=== PATIENT | female | born 1990 | race Caucasian/White ===

== ENCOUNTER → 2019-07-21 | Outpatient (CLI) | payer BC ==
--- NOTE | 2019-07-21 17:10 | RAD ---
THYROID ULTRASOUND History: Cervical lymphadenopathy. Fever of unknown origin. Comparison: None. Technique: Multiple grayscale and color Doppler images of the thyroid gland were obtained. Findings: Right thyroid lobe measures 2.96 x 1.4 x 1.8 cm. Left thyroid lobe measures 3.6 x 1.4 x 1.7 cm. Isthmus measures 0.2 cm. Bilateral colloid cysts two on the right and one on the left. The largest on the right measures 0.7 x 0.7 x 0.6 cm. Borderline enlarged rounded hypoechoic left deep cervical chain lymph nodes largest measures 2.6 x 0.8 x 0.7 cm. IMPRESSION: 1. Borderline enlarged rounded hypoechoic left deep cervical chain lymph nodes, likely reactive. Recommend continued clinical follow-up and ultrasound follow-up if interval growth 2. Bilateral thyroid colloid cysts. Electronically signed by: Madhu Moreno DO (07/21/2019 5:07 PM) [facility]
== END | disposition home or self-care (01) ==
LOC: US 10:01
PROVIDERS: ATTEND Family Medicine
DX: E04.1 Nontoxic single thyroid nodule (principal); R59.0 Localized enlarged lymph nodes
CPT/HCPCS: 76536

== ENCOUNTER 2020-09-24 11:05 | Emergency (ER) | payer BC ==
[~2020-09-24] VITALS: Ht 152.4 cm; Wt 50.0 kg
[2020-09-24] MEDS: IV NORMAL SALINE 1,000ML 1,000 ML IV ONE (11:29)
[2020-09-24 11:39] LABS: HEMOGLOBIN 12.9 g/dL (12.0-15.5); RED BLOOD COUNT 4.26 x10^6/uL (3.50-5.40); RED CELL DISTRIBUTION WIDTH 13.1 % (11.5-14.5); WHITE BLOOD COUNT 3.4 x10^3/uL (4.0-11.0)
[2020-09-24 11:46] LABS: CALCIUM 8.7 mg/dL (8.5-10.1); CREATININE 0.8 mg/dL (0.6-1.0); GFR 84.2; POTASSIUM 3.2 mmol/L (3.5-5.1)
[2020-09-24 11:59] LABS: PREG TEST PT QUAL NEGATIVE (NEG)
[2020-09-24] MEDS: POTASSIUM CHLORIDE 10 MEQ TABLET.ER. PO ONE (12:15)
[2020-09-24 12:25] VITALS: BP 127/47
[2020-09-24 12:43] LABS: BILIRUBIN,URINE NEG (NEG); CLARITY,URINE HAZY; COLOR,URINE YELLOW; GLUCOSE,URINE NEG (NEG); NITRITE,URINE NEG (NEG); RBC,URINE 0 /HPF (0-2); UROBILINOGEN,URINE 0.2 mg/dL (0.2 mg/dL)
[2020-09-24 12:44] LABS: BACTERIA,URINE FEW /HPF (0-FEW); SQUAMOUS EPITHELIAL CELL,UR MOD /LPF
--- NOTE | 2020-09-24 12:49 | PHYS DOC ---
Past History Past Medical History: No Pertinent History Past Surgical History: No Surgical History Alcohol Use: None General Adult EDM: Chief Complaint: MULTIPLE COMPLAINTS HPI: HPI: Patient is a 30-year-old female who presented to ER for evaluation feeling hot flushes, episode of dizziness, palpitation. Patient denied any chest pain, no headache, no cough or fever. Patient checked her blood pressure at home with a portable machine, and it shown that her blood pressure high. So she came here for evaluation. Patient denies any history of hypertension, she is not on any medication. Patient denies any chest pain or any trouble breathing. Denies any recent travel or operation, denies being exposed to anybody who tested positive for COVID-19. Patient said when she got here she does not have any symptom. Review of Systems: Review of Systems: Constitutional: Denies fever or chills Eyes: Denies change in visual acuity HENT: Denies nasal congestion or sore throat Respiratory: Denies cough or shortness of breath Cardiovascular: Denies chest pain or edema GI: Denies abdominal pain, nausea, vomiting, bloody stools or diarrhea : Denies dysuria Musculoskeletal: Denies back pain or joint pain Integument: Denies rash Neurologic: Denies headache, focal weakness or sensory changes Endocrine: Denies polyuria or polydipsia Lymphatic: Denies swollen glands Psychiatric: Denies depression or anxiety Current Medications: Current Meds: Current Medications Medications (Trade) Dose Ordered Sig/Candace Start Time Stop Time Status Last Admin Dose Admin Potassium Chloride (Klor-Con) 40 meq 1X ONCE 09/24/20 12:15 09/24/20 12:16 DC 09/24/20 12:15 40 MEQ Sodium Chloride 1,000 ml @ 1,000 mls/hr 1X ONCE 09/24/20 11:30 09/24/20 12:29 DC 09/24/20 11:29 1,000 MLS/HR Allergies: Allergies: Allergies Coded Allergies Type Severity Reaction Last Updated Verified latex Allergy Unknown 09/24/20 Yes Physical Exam: PE: Constitutional: Well developed, well nourished, no acute distress, non-toxic appearance. [] HENT: Normocephalic, atraumatic, bilateral external ears normal, oropharynx moist, no oral exudates, nose normal. [] Eyes: PERRLA, EOMI, conjunctiva normal, no discharge. [] Neck: Normal range of motion, no tenderness, supple, no stridor. [] Cardiovascular:Heart rate regular rhythm, no murmur [] Lungs & Thorax: Bilateral breath sounds clear to auscultation [] Abdomen: Bowel sounds normal, soft, no tenderness, no masses, no pulsatile masses. [] Skin: Warm, dry, no erythema, no rash. [] Back: No tenderness, no CVA tenderness. [] Extremities: No tenderness, no cyanosis, no clubbing, ROM intact, no edema. [] Neurologic: Alert and oriented X 3, normal motor function, normal sensory function, no focal deficits noted. [] Psychologic: Affect normal, judgement normal, mood normal. [] Current Patient Data: Labs: Laboratory Tests Test 09/24/20 11:26 09/24/20 12:19 White Blood Count 3.4 x10^3/uL (4.0-11.0) L Red Blood Count 4.26 x10^6/uL (3.50-5.40) Hemoglobin 12.9 g/dL (12.0-15.5) Hematocrit 38.0 % (36.0-47.0) Mean Corpuscular Volume 89 fL (79-100) Mean Corpuscular Hemoglobin 30 pg (25-35) Mean Corpuscular Hemoglobin Concent 34 g/dL (31-37) Red Cell Distribution Width 13.1 % (11.5-14.5) Platelet Count 177 x10^3/uL (140-400) Sodium Level 130 mmol/L (136-145) L Potassium Level 3.2 mmol/L (3.5-5.1) L Chloride Level 96 mmol/L (98-107) L Carbon Dioxide Level 24 mmol/L (21-32) Anion Gap 10 (6-14) Blood Urea Nitrogen 10 mg/dL (7-20) Creatinine 0.8 mg/dL (0.6-1.0) Estimated GFR (Cockcroft-Gault) 84.2 Glucose Level 114 mg/dL (70-99) H Calcium Level 8.7 mg/dL (8.5-10.1) Serum Test, Qualitative Negative (NEG) Urine Collection Type Unknown Urine Color Yellow Urine Clarity Hazy Urine pH 8.5 Urine Specific [place] 1.020 Urine Protein Neg (NEG-TRACE) Urine Glucose (UA) Neg mg/dL (NEG) Urine Ketones (Stick) Neg mg/dL (NEG) Urine Blood Neg (NEG) Urine Nitrite Neg (NEG) Urine Bilirubin Neg (NEG) Urine Urobilinogen Dipstick 0.2 mg/dL (0.2 mg/dL) Urine Leukocyte Esterase Mod (NEG) Urine RBC 0 /HPF (0-2) Urine WBC 5-10 /HPF (0-4) Urine Squamous Epithelial Cells Mod /LPF Urine Bacteria Few /HPF (0-FEW) Vital Signs: Vital Signs Date Time Temp Pulse Resp B/P (MAP) Pulse Ox O2 Delivery O2 Flow Rate FiO2 09/24/20 12:25 90 16 127/47 (73) 98 Room Air 09/24/20 11:14 97.6 EKG: EKG: [] Radiology/Procedures: Radiology/Procedures: [] Heart Score: Risk Factors: Risk Factors: DM, Current or recent (<one month) smoker, HTN, HLP, family history of CAD, obesity. Risk Scores: Score 0 - 3: 2.5% MACE over next 6 weeks - Discharge Home Score 4 - 6: 20.3% MACE over next 6 weeks - Admit for Clinical Observation Score 7 - 10: 72.7% MACE over next 6 weeks - Early Invasive Strategies Course & Med Decision Making: Course & Med Decision Making Pertinent Labs and Imaging studies reviewed. (See chart for details) Patient had no urinary symptoms, no burning with urination, no frequency or urgency. UA shown contamination, no antibiotic needed. Patient was found to have low potassium, patient was given potassium supplement in ER. Patient was discharged home, she was instructed follow-up with her family physician for reevaluation. Nik Disclaimer: Nik Disclaimer: This electronic medical record was generated, in whole or in part, using a voice recognition dictation system. Departure Departure: Impression: Primary Impression: Hypokalemia Disposition: 01 DC HOME SELF CARE/HOMELESS Condition: IMPROVED Referrals: PATRICIA REN MD (PCP) follow up with your doctor in 1-2 days for reevaluation Patient Instructions: Hypokalemia Additional Instructions: Thank you for visiting our Emergency Department. We appreciate you trusting us with your care. If any additional problems come up don't hesitate to return to visit us. Please follow up with your primary care provider so they can plan additional care if needed and know about the problem that you had. If symptoms worsen come back to the Emergency Department. Any concerning symptoms that start such as chest pain, shortness of air, weakness or numbness on one side of the body, running high fevers or any other concerning symptoms return to the ER. DELMI HAMPTON DO Sep 24, 2020 12:49
== END 2020-09-24 13:00 | disposition home or self-care (01) ==
LOC: ER 11:05
DX: E87.6 Hypokalemia (principal); Z91.040 Latex allergy status
CPT/HCPCS: 36415; 80048; 81001; 84703; 85027; 87086; 96360; 99283; J7030

== ENCOUNTER 2020-10-11 18:38 | Emergency (ER) | payer BC ==
[~2020-10-11] VITALS: Ht 152.4 cm; Wt 51.6 kg
[2020-10-11] MEDS ORDERED: IV NORMAL SALINE 1,000ML 1,000 ML IV ONE (19:30)
--- NOTE | 2020-10-11 19:31 | PHYS DOC ---
Past History Past Medical History: No Pertinent History (ES DIAS APRN) Past Surgical History: No Surgical History (ES DIAS APRN) Alcohol Use: None (ES DIAS APRN) Adult General Chief Complaint Chief Complaint: RAPID HEART RATE HPI HPI Patient is a 30-year-old female patient presenting to the ED today to be evaluated for tachycardia and a cough. Patient states 3 weeks ago she developed nasal congestion, she states it cleared up but she was stuck with a cough. She states today she went to urgent care to be evaluated and her heart rate was in the 140s. Patient states tachycardia is not unusual for her. She states she has had chronic tachycardia for a while and nobody knows why. She states she has been seen by her PCP and was advised to follow-up with a food photographer and be put a Holter monitor. She states that part has not been done yet. Patient denies any fever. Denies any chance she is . Denies being on any control. Denies any unilateral leg pain or recent hospitalizations or surgeries. (ES DIAS APRN) Review of Systems Review of Systems Constitutional: Denies fever or chills [] Eyes: Denies change in visual acuity, redness, or eye pain [] HENT: Denies nasal congestion or sore throat [] Respiratory: Reports cough, denies shortness of breath [] Cardiovascular: Reports tachycardia GI: Denies abdominal pain, nausea, vomiting, bloody stools or diarrhea [] : Denies dysuria or hematuria [] Musculoskeletal: Denies back pain or joint pain [] Integument: Denies rash or skin lesions [] Neurologic: Denies headache, focal weakness or sensory changes [] All other systems were reviewed and found to be within normal limits, except as documented in this note. (ES DIAS APRN) Allergies Allergies Allergies Coded Allergies Type Severity Reaction Last Updated Verified latex Allergy Unknown 10/11/20 Yes (ES DIAS APRN) Physical Exam Physical Exam Constitutional: Well developed, well nourished, no acute distress, non-toxic appearance. [] HENT: Normocephalic, atraumatic, bilateral external ears normal, oropharynx moist, no oral exudates, nose normal. [] Eyes: PERRLA, EOMI, conjunctiva normal, no discharge. [] Neck: Normal range of motion, no tenderness, supple, no stridor. [] Cardiovascular: Tachycardic, no murmur [] Lungs & Thorax: Bilateral breath sounds clear to auscultation [] Abdomen: Bowel sounds normal, soft, no tenderness, no masses, no pulsatile masses. [] Skin: Warm, dry, no erythema, no rash. [] Back: No tenderness, no CVA tenderness. [] Extremities: No tenderness, no cyanosis, no clubbing, ROM intact, no edema. [] Neurologic: Alert and oriented X 3, normal motor function, normal sensory function, no focal deficits noted. [] Psychologic: Affect normal, judgement normal, mood normal. [] (ES DIAS APRN) Current Patient Data Vital Signs Vital Signs Date Time Temp Pulse Resp B/P (MAP) Pulse Ox O2 Delivery O2 Flow Rate FiO2 10/11/20 18:48 97.6 114 26 122/69 (86) 100 Room Air (ES DIAS APRN) EKG EKG [address] Rodriguez sinus tachycardia HR 115 no STEMI[] (ES DIAS APRN) Radiology/Procedures Radiology/Procedures []PROCEDURE: PORTABLE CHEST 1V Exam: Chest one view INDICATION: Tachycardia TECHNIQUE: Frontal view of the chest Comparisons: None FINDINGS: The cardiomediastinal silhouette and pulmonary vessels are within normal limits. The lung and pleural spaces are clear. IMPRESSION: No acute cardiopulmonary process. Electronically signed by: Alexis Hensley MD (10/11/2020 8:11 PM) [facility] DICTATED AND SIGNED BY: ALEXIS HENSLEY MD DATE: 10/11/202010 CC: DESMOND BERNAL MD; PATRICIA REN MD; ES DIAS APRN ~MTH0 0 (ES DIAS APRN) Heart Score Risk Factors: Risk Factors: DM, Current or recent (<one month) smoker, HTN, HLP, family history of CAD, obesity. Risk Scores: Risk Factors: DM, Current or recent (<one month) smoker, HTN, HLP, family hi story of CAD, obesity. (ES DIAS APRN) Course & Med Decision Making Course & Med Decision Making Pertinent Labs and Imaging studies reviewed. (See chart for details) This is a 30-year-old female patient presented to the ED today to be evaluated for tachycardia and a cough see HPI. Patient reports this tachycardia has been going on for quite some time. She is suppose to follow-up with the specialist and be put on a alarm security or surveillance monitor. EKG sinus tachycardia, heart rates in the 110-115. Chest x-ray is negative, troponin is normal, D-dimer is normal.CBC with no acute findings, CMP with potassium of 3.2, patient was given oral potassium replacement. She reports hypokalemia last week when she was seen by her PCP. Patient was discharged to home. Provided a food photographer for follow-up, she also has a PCP. Patient was provided return precautions and discharged in stable condition. (ES DIAS APRN) Dragon Disclaimer Dragon Disclaimer This electronic medical record was generated, in whole or in part, using a voice recognition dictation system. (ES DIAS APRN) Departure Departure: Impression: Primary Impression: Tachycardia Additional Impressions: Hypokalemia Cough Disposition: 01 DC HOME SELF CARE/HOMELESS Condition: STABLE Referrals: PATRICIA REN MD (PCP) follow up in the course of this week GISEL SCOTT MD follow up this week Patient Instructions: Cough, Adult, Hypokalemia, Nonspecific Tachycardia Additional Instructions: You were evaluated in the emergency room for tachycardia and a cough, your chest x-ray is negative for any acute findings. You were tested for COVID-19. We will call you in 3 days with results. In the meantime quarantine yourself, maintain good hand hygiene. Follow-up with your doctor in the course of this week. You also provided your food photographer, follow-up with him in the course of this week, come back to the ED at any point symptoms worsen Dragon Disclaimer This chart was dictated in whole or in part using Voice Recognition software in a busy, high-work load, and often noisy Emergency Department environment. It may contain unintended and wholly unrecognized errors or omissions. (DESMOND BERNAL MD) Attending Co-Sign Attending Co-Sign The patient was seen and interviewed as well as examined at the bedside. The chart was reviewed. The case was discussed. Agree with the plan of care. (DESMOND BERNAL MD) Problem Qualifiers ES DIAS APRN Oct 11, 2020 19:31 DESMOND BERNAL MD Oct 11, 2020 21:38
[2020-10-11 19:47] LABS: BASO # 0.1 x10^3/uL (0.0-0.2); BASO % 1 % (0-3); EOS # 0.2 x10^3/uL (0.0-0.7); EOS % 2 % (0-3); HEMOGLOBIN 13.7 g/dL (12.0-15.5); LYMPH # 3.2 x10^3/uL (1.0-4.8); LYMPH % 31 % (24-48); MEAN CORPUSCULAR HEMOGLOBIN 30 pg (25-35); MEAN CORPUSCULAR HGB CONC 34 g/dL (31-37); MEAN CORPUSCULAR VOLUME 88 fL (79-100); MONO # 0.6 x10^3/uL (0.0-1.1); MONO % 6 % (0-9); NEUT # 6.1 x10^3uL (1.8-7.7); NEUT % 60 % (31-73); PLATELET COUNT 271 x10^3/uL (140-400); RED BLOOD COUNT 4.53 x10^6/uL (3.50-5.40); RED CELL DISTRIBUTION WIDTH 12.6 % (11.5-14.5); WHITE BLOOD COUNT 10.1 x10^3/uL (4.0-11.0)
[2020-10-11 19:50] LABS: CREATININE 0.9 mg/dL (0.6-1.0); GFR 73.5; POTASSIUM 3.2 mmol/L (3.5-5.1)
[2020-10-11 20:05] LABS: ALBUMIN 4.4 g/dL (3.4-5.0); ALBUMIN/GLOBULIN RATIO 1.1 (1.0-1.7); MAGNESIUM 2.3 mg/dL (1.8-2.4); TOTAL BILIRUBIN 0.5 mg/dL (0.2-1.0); TOTAL PROTEIN 8.4 g/dL (6.4-8.2)
--- NOTE | 2020-10-11 20:14 | RAD ---
Exam: Chest one view INDICATION: Tachycardia TECHNIQUE: Frontal view of the chest Comparisons: None FINDINGS: The cardiomediastinal silhouette and pulmonary vessels are within normal limits. The lung and pleural spaces are clear. IMPRESSION: No acute cardiopulmonary process. Electronically signed by: Alexis Goncalves MD (10/11/2020 8:11 PM) [facility]
[2020-10-11] MEDS ORDERED: POTASSIUM CHLORIDE 20 MEQ TABLET.ER. PO ONE (20:30)
--- NOTE | 2020-10-11 21:15 | EKG ---
[facility] ED [facility] [address] [place] [id number] Test Date: 2020-10-11 Test Time: 19:23:30 Pat Name: YOSELIN NAVARRO Department: Room: Gender: F Lpta: : 1990 Requested By: ES DIAS Order Number: [id number] Reading MD: Measurements Intervals [place] Rate: 115 P: 45 CA: 128 QRS: 82 QRSD: 70 T: 52 QT: 304 QTc: 422 Interpretive Statements SINUS TACHYCARDIA OTHERWISE NORMAL ECG RI6.02 No previous ECG available for comparison
[2020-10-11 21:21] VITALS: BP 125/70
[2020-10-11 21:32] LABS: BILIRUBIN,URINE NEG (NEG); CLARITY,URINE CLEAR; COLOR,URINE YELLOW; GLUCOSE,URINE NEG (NEG)
[2020-10-11 21:33] LABS: BACTERIA,URINE 0 /HPF (0-FEW); NITRITE,URINE NEG (NEG); RBC,URINE 0 /HPF (0-2); SQUAMOUS EPITHELIAL CELL,UR OCC /LPF; UROBILINOGEN,URINE 0.2 mg/dL (0.2 mg/dL)
[2020-10-11 22:07] LABS: BARBITURATES NEG (NEG); BENZODIAZEPINES NEG (NEG); CANNABINOIDS NEG (NEG); COCAINE NEG (NEG); METHADONE NEG (NEG); OPIATES NEG (NEG); PHENCYCLIDINE NEG (NEG)
[2020-10-11 22:10] LABS: AMPHETAMINE/METHAMPHETAMINE NEG (NEG)
--- NOTE | 2020-10-18 10:18 | NUR ---
IP: notified patient of COVID result.
== END 2020-10-11 21:30 | disposition home or self-care (01) ==
LOC: ER 18:38
DX: R00.0 Tachycardia, unspecified (principal); R05 Cough; E87.6 Hypokalemia; Z20.828 Contact with and (suspected) exposure to other viral communicable diseases; Z91.040 Latex allergy status
CPT/HCPCS: 36415; 71045; 80053; 80307; 81001; 81025; 82553; 83735; 83880; 84443; 84484; 85025; 85379; 85610; 85730; 87077; 87086; 93005; 96360; 99285; C9803; J7030; U0003; 99284-25

== ENCOUNTER → 2021-04-19 | Outpatient (CLI) | payer BC ==
[2021-04-19 09:46] LABS: BASO # 0.1 x10^3/uL (0.0-0.2); BASO % 1 % (0-3); EOS # 0.2 x10^3/uL (0.0-0.7); EOS % 3 % (0-3); HEMOGLOBIN 13.7 g/dL (12.0-15.5); LYMPH # 2.2 x10^3/uL (1.0-4.8); LYMPH % 31 % (24-48); MEAN CORPUSCULAR HEMOGLOBIN 31 pg (25-35); MEAN CORPUSCULAR HGB CONC 34 g/dL (31-37); MEAN CORPUSCULAR VOLUME 90 fL (79-100); MONO # 0.5 x10^3/uL (0.0-1.1); MONO % 7 % (0-9); NEUT % 58 % (31-73); PLATELET COUNT 248 x10^3/uL (140-400); RED BLOOD COUNT 4.44 x10^6/uL (3.50-5.40); RED CELL DISTRIBUTION WIDTH 12.9 % (11.5-14.5); WHITE BLOOD COUNT 6.9 x10^3/uL (4.0-11.0)
[2021-04-19 09:58] LABS: CALCIUM 9.1 mg/dL (8.5-10.1); CREATININE 0.8 mg/dL (0.6-1.0); GFR 84.2; POTASSIUM 3.7 mmol/L (3.5-5.1)
[2021-04-20 19:29] LABS: THYROID STIM HORMONE (TSH) 1.672 uIU/mL (0.358-3.740)
== END ==
LOC: LAB 08:56
PROVIDERS: ATTEND Internal Medicine Cardiovascular Disease
DX: R00.0 Tachycardia, unspecified (principal)
CPT/HCPCS: 36415; 80048; 84439; 84443; 85025